=== PATIENT | male | born 1990 | race Asian ===

== ENCOUNTER 2019-05-03 10:17 | Emergency (ER) | payer OTHER ==
[~2019-05-03] VITALS: Ht 182.9 cm; Wt 97.5 kg
[~2019-05-03 10:17] MED LIST: NOHOMEMEDICATIONS
[2019-05-03] MEDS ORDERED: TRAMADOL 50 MG50 MG PO (12:11)
[2019-05-03] MEDS ORDERED: KEFLEX500 M1 PO (12:11)
[2019-05-03 14:03] VITALS: BP 138/78
== END 2019-05-03 14:05 | disposition home or self-care (01) ==
LOC: ER 10:17
DX: S00.83XA Contusion of other part of head, initial encounter (principal); F17.210 Nicotine dependence, cigarettes, uncomplicated; Y08.89XA Assault by other specified means, initial encounter; Y93.89 Activity, other specified; Y92.89 Other specified places as the place of occurrence of the external cause; Y99.8 Other external cause status